=== PATIENT | female | born 1965 | race Two or more races ===

== ENCOUNTER → 2017-08-03 | Day surgery (SDC) | payer OTHER ==
[~2017-08-03] MED LIST: IV RINGERS SOLUTION,LACTATED 1,000 ML IV ONE; PROPOFOL 40 ML IV ONE
== END | disposition home or self-care (01) ==
LOC: SURG 11:50
PROVIDERS: ATTEND Internal Medicine Gastroenterology
DX: Z12.11 Encounter for screening for malignant neoplasm of colon (principal); J45.909 Unspecified asthma, uncomplicated
CPT/HCPCS: 45378; J2704; J7120; 99152; 99153